=== PATIENT | male | born 1950 | race Caucasian/White ===

== ENCOUNTER → 2017-12-25 | Outpatient (CLI) | payer OTHER | END | disposition home or self-care (01) | LOC: CFH 08:52 | PROVIDERS: ATTEND Family Medicine | DX: Z12.2 Encounter for screening for malignant neoplasm of respiratory organs (principal); R91.1 Solitary pulmonary nodule; F17.210 Nicotine dependence, cigarettes, uncomplicated | CPT/HCPCS: G0297 ==

== ENCOUNTER → 2018-12-03 | Outpatient (CLI) | payer MEDICARE | END | disposition home or self-care (01) | LOC: CFH 08:04 | PROVIDERS: ATTEND Family Medicine | DX: Z12.2 Encounter for screening for malignant neoplasm of respiratory organs (principal); F17.200 Nicotine dependence, unspecified, uncomplicated | CPT/HCPCS: G0297 ==

== ENCOUNTER 2019-12-02 01:31 | Emergency (ER) | payer MEDICARE ==
[~2019-12-02] VITALS: Ht 190.5 cm; Wt 102.2 kg
--- NOTE | 2019-12-02 02:08 | NUR ---
Patient resting comfortably, EKG completed by photographic laboratory technician and reviewed by provider. Patient is alert, oriented and answers questions clearly and concisely. Patient's breaths are somewhat labored, but no intercostal, suprasternal contractions. Patient assessed by provider. Patient provided warm blanket x3 to assist pulsatile oxygen sensor read. Also attached to electrocardiographic leads and blood pressure cuff. Vital signs stable (see triage flowsheet.) Patient oriented to call light system. Verbalized undestanding. Skin Care Instructor at bedside now. Awaiting chest xray and laboratory results.
[2019-12-02 02:20] LABS: RAPID INFLUENZA A Negative (Negative); RAPID INFLUENZA B Negative (Negative)
[2019-12-02 02:28] LABS: BASOPHILS # (AUTO) 0.06 x10^3/uL (0-0.1); BASOPHILS % (AUTO) 1 % (0-1); EOSINOPHILS # (AUTO) 0.23 x10^3/uL (0-0.4); EOSINOPHILS % (AUTO) 2 % (1-7); LYMPHOCYTES # (AUTO) 1.12 x10^3/uL (1-3.4); LYMPHOCYTES % (AUTO) 10 % (22-44); MD NO; MEAN CORPUSCULAR HEMOGLOBIN 29.9 pg (27.5-34.5); MEAN CORPUSCULAR HGB CONC 32.9 g/dL (33.2-36.2); MEAN CORPUSCULAR VOLUME 91.1 fL (81-97); MEAN PLATELET VOLUME 7.9 fL (7.4-10.4); MONOCYTES # (AUTO) 0.59 x10^3/uL (0.2-0.8); MONOCYTES % (AUTO) 5 % (2-9); NEUTROPHILS # (AUTO) 9.49 x10^3/uL (1.8-6.8); NEUTROPHILS % (AUTO) 83 % (42-75); PLATELET COUNT 226 x10^3/uL (130-400); RED BLOOD COUNT 4.55 x10^6/uL (4.38-5.82); RED CELL DISTRIBUTION WIDTH 13.9 % (9.4-14.8)
[2019-12-02 02:37] LABS: ALANINE AMINOTRANSFERASE 27 U/L (12-78); ANION GAP 6 mmol/L (5-15); CHLORIDE 106 mmol/L (98-107); CREATININE 2.01 mg/dL (0.7-1.3)
[2019-12-02 02:41] LABS: ALKALINE PHOSPHATASE 51 U/L (45-117); BILIRUBIN,TOTAL 0.5 mg/dL (0.2-1.0); TROPONIN I < 0.015 ng/mL (0.000-0.045)
[2019-12-02 03:13] VITALS: BP 128/82
[2019-12-02] MEDS ORDERED: GUANFACINE 1MG TAB ER PO ONE (03:30)
[2019-12-02] MEDS ORDERED: GUAIFENESIN ER 600 MG TABLET ONE (03:31)
[2019-12-02] MEDS ORDERED: GUAIFENESIN ER 600 MG TABLET PO ONE (04:00)
== END 2019-12-02 03:54 ==
LOC: ED 03:48
DX: R05 Cough (principal); R42 Dizziness and giddiness; Z87.891 Personal history of nicotine dependence
CPT/HCPCS: 36415; 71045; 80053; 84484; 85025; 87400; 93005; 99284

== ENCOUNTER 2020-03-31 08:50 | Outpatient (CLI) | payer MEDICARE | END 2020-03-31 23:59 | disposition home or self-care (01) | LOC: CFH 08:50 | PROVIDERS: ATTEND Family Medicine | DX: Z12.2 Encounter for screening for malignant neoplasm of respiratory organs (principal); R91.1 Solitary pulmonary nodule; J92.9 Pleural plaque without asbestos; Z87.891 Personal history of nicotine dependence | CPT/HCPCS: G0297 ==

== ENCOUNTER → 2021-05-11 | Outpatient (CLI) | payer MEDICARE ==
[~2021-05-11] MED LIST: FINA1TAB16 PO; LISI-167 PO; LISI-170 PO; LORA-445 PO; PROP20TA PO; TAMS-11 PO; TRAZ50TA66 PO
== END | disposition home or self-care (01) ==
LOC: CFH 11:28
PROVIDERS: ATTEND Family Medicine
DX: Z12.2 Encounter for screening for malignant neoplasm of respiratory organs (principal); R91.1 Solitary pulmonary nodule; Z87.891 Personal history of nicotine dependence
CPT/HCPCS: 71271